=== PATIENT | male | born 1970 | race Caucasian/White ===

== ENCOUNTER 2024-11-10 09:55 | Emergency (ER) | payer OTHER, SELFPAY ==
--- OUTSIDE RECORDS SUMMARY | 2024-11-10 09:58 | XMS_ITS | Clinical Summary ---
Author Organization [facility] Address [address] [place] [address] Care Team Providers Care Psychodramatist Name Role Phone Jose Cordova MD Primary Care Provider [phone] Source Comments [facility],non-owned Affiliates and Associated Physician Practices is amultiple site organization consisting of ambulatory clinics and hospital sitesin [place], [place], [place] and [place]. This disclosure is being madepursuant to the Care Everywhere program and may not contain all information available regarding this patient. Last updated 18.[facility] Allergies No known active allergies Medications * Be aware that medications may not be up to date on this document. Alwaysverify current medications with the patient. Synthroid 125 MCG tablet Take 1 (one) tablet by mouth once daily 02/23/2022 Active escitalopram (Lexapro) 10 MG tablet Take 1 (one) tablet by mouth once daily 01/26/2022 Active lisinopril-hydro CHLOROthiazide (Prinzide; Zestoretic) 20-25 MG tablet Take 1 (one) tablet by mouth once daily 01/05/2023 Active Social History Tobacco Use Types Packs/Day Years Used Date Smoking Tobacco: Former Cigarettes 2 20 1 - 2011 Smokeless Tobacco: Former Chew Quit: 2016 Tobacco Cessation:Counseling Given: Not Answered Alcohol Use Standard Drinks/Week Comments Yes 0 (1 standard drink = 0.6 oz pur e alcohol) everyother day 3 beers or so Sex and Gender Information Value Date Recorded Sex Assigned at Not on file Legal Sex Male 1:11 PM CDT Gender Identity Not on file Sexual Orientation Not on file Last Filed Vital Signs Vital Sign Reading Time Taken Comments Blood Pressure 135/83 06/11/2022 12:30 PM INDUSTRIAL ECOLOGIST Pulse 82 06/11/2022 12:30 PM INDUSTRIAL ECOLOGIST Temperature 37 C (98.6 F) 06/11/2022 11:33 AM INDUSTRIAL ECOLOGIST Respiratory Rate 16 06/11/2022 12:40 PM INDUSTRIAL ECOLOGIST Oxygen Saturation 93% 06/11/2022 12:40 PM INDUSTRIAL ECOLOGIST Inhaled Oxygen Concentration - - Weight 98.9 kg (218 lb) 06/11/2022 7:31 AM INDUSTRIAL ECOLOGIST Height 172.7 cm (5' 8) 06/11/2022 7:31 AM INDUSTRIAL ECOLOGIST Body Mass Index 33.15 06/11/2022 7:31 AM INDUSTRIAL ECOLOGIST Plan of Treatment Health Maintenance Due Date Last Done Comments COLOGUARD (AGES 45-75) - COL ON CA SCREENING 1968 COLON MONITORING 1968 COLONOSCOPY - COLON CA SCREENING 1968 CT COLONOGRAPHY - COLON CA SCREENING 1968 Colorectal Cancer Screening 1968 FIT - COLON CA SCREENING 1968 FLEX SIG - COLON CA SCREENING 1968 LIPID TESTING 1968 HIV SCREENING 1983 HEPATITIS C SCREENING 03/14/1986 DTAP/TDAP/TD VACCINES (1 - Tdap) 1987 HEPATITIS B VACCINE (1 of 3 - 19+ 3-dose series) 1987 LUNG CANCER SCREENING 2018 PNEUMOCOCCAL VACCINE 50+ (1 of 1 - PCV) 2018 ZOSTER VACCINE (1 of 2) 2018 COVID-19 VACCINE (1 - 2023-2 5 season) 2024 DEPRESSION SCREENING 06/15/2024 INFLUENZA VACCINE (Season Ended) 2025 HIB VACCINE Aged Out No longer eligi ble based on patient's age to complete this topic HPV VACCINE Aged Out No longer eligi ble based on patient's age to complete this topic MENINGOCOCCAL (Group B) VACC INE SHARED DECISION-MAKING Aged Out No longer eligibl e based on patient's age to complete this topic MENINGOCOCCAL GROUPS A/C/Y/W VACCINE Aged Out No longer eligible b ased on patient's age to complete this topic Insurance [facility] Care Teams Psychodramatist Relationship Specialty Start Date End Date Jose Cordova MD [address] [place] [address] PCP - General Family Medicine 05/29/22
--- OUTSIDE RECORDS SUMMARY | 2024-11-10 10:00 | XMS_ITS | Clinical Summary ---
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 If there is a need to make changes, will recheck levels in 2-3 months. Instructions to patient on taking medication properly : in the morning, on an empty stomach , 1 h part from food and/or other meds. If any doses are missed, can take 2-3 tab together ,to make up for the missed dose; make sure at the end to the week, 7 tabs have been taken. Patient to follow up with his PCP Assessment & Plan (10/26/2018 10:01 AM CDT): Continue Synthroid, 125 mcg daily. Recheck levels in 3 months. Assessment & Plan (07/06/2018 10:03 AM WEDDING MAKEUP ARTIST): Continue Synthroid, 125 mcg daily Recheck TSH and free T4 in 2 months. Will adjust dose of Levothyroxine accordingly . If there is a need to make changes, will recheck levels in 2-3 months. Instructions to patient on taking medication properly : in the morning, on an empty stomach , 1 h part from food and/or other meds. If any doses are missed, can take 2-3 tab together ,to make up for the missed dose; make sure at the end to the week, 7 tabs have been taken. Resolved Problems Problem Noted Date Diagnosed Date Resolved Date Multinodular goiter 10/27/2017 07/06/19 19 Assessment & Plan (06/09/2018 11:56 AM WEDDING MAKEUP ARTIST): Patient has done exceptionally well postoperatively. He is having no postoperative issues. Patient is currently on levothyroxine 125 mcg daily. Patient is instructed to follow up with Dr. Roberts, medical wash tub machine operator to help him properly adjust his thyroid hormone replacement. Additional wound care instructions were discussed. Patient can follow back up as needed. Assessment & Plan (03/31/2018 1:01 PM CDT): Patient has a longstanding history of thyromegaly with multinodular goiter. Patient underwent a ultrasound-guided fine-needle aspiration biopsy of the dominant nodules within both right left lobes. The right lobe came back Flinton category ll and the left lobe came back consistent with Flinton category lll. The left lobe was sent for genomic testing however patient's insurance company denied payment so this was not performed. It was felt that the patient would benefit from repeat needle biopsy of the left dominant nodule. The 2nd biopsy came back Flinton class ll. There was finding on ultrasound imaging that the dominant nodule in the left has microcalcifications. Patient and remain concerned of a possible malignancy within the left lobe. Surveillance ultrasound imaging has demonstrated progressive increase in size of the thyroid nodules. Patient also experiences mild local compressive symptoms with his restricted pressure type feeling in the neck that is positional. A long and thorough discussion took place today with the patient pertaining to the medical and surgical management of thyroid disease. Based on the patient's history, review of diagnostic testing and my physical findings patient meets indications to undergo a total thyroidectomy with continuous recurrent laryngeal nerve monitoring. Patient was made aware that he will require thyroid hormone replacement for the rest of his life postsurgically. I discussed the surgery in detail with elaborated on the recurrent laryngeal nerve and parathyroid glands, their anatomical location relationship to the operative site and the potential functional disability that could occur should the structures be injured. All questions were answered to what appeared to be patient's understanding and satisfaction. After the procedure was explained in full the potential risk, complications, benefits and alternatives patient would like to further discuss of this his and call us when he is ready to make a decision. Assessment & Plan (10/27/2017 10:57 AM CDT): This is most likely a benign multinodular goiter, especially with a long standing history. I have recommended a FNA biopsy of the right dominant nodule and also the one in the left , which seems to have some microcalcifications Differential diagnosis would include benign nodule (macrofollicular or adenomatoid/hyperplastic nodules, colloid adenomas, nodular goiter, and Shannon's thyroiditis) vs thyroid carcinoma ( follicular , papillary ) FNA indicated and performed If benign, will follow up in a year Otherwise, Might need surgical referral. Subclinical hyperthyroidism 10/27/2017 07/06/2018 Assessment & Plan (10/27/2017 10:54 AM CDT): With over 10+ year history documented with serial thyroid function test his TSH seems to be a stable. I explained to the patient and his how this condition, usually requires no treatment, specialist so in a young person. I try to reassure the patient that his symptoms are very unlikely related to this. Would recommend to continue monitoring thyroid function tests on a yearly basis. Surgical History Surgery Date Site/Laterality Comments HERNIA REPAIR 06/15/2007 - 06/14/2008 Left IHR COLONOSCOPY W/ POLYPECTOMY 06/15/2009 - 06/14/2010 VASECTOMY THYROIDECTOMY 05/15/2018 - 06/14/2018 Medical History Medical History Date Comments Sleep apnea Heart murmur Thyroid nodule Migraines Family History Medical History Relation Name Comments Hypertension Father Atrial fibrillation Mother Diabetes Mother Hypertension Mother Relation Name Status Comments Father Alive Mother Alive Social History Tobacco Use Types Packs/Day Years Used Date Smoking Tobacco: Former Cigarettes Q uit: 2017 Smokeless Tobacco: Former Quit: 03/26/2018 Alcohol Use Standard Drinks/Week Comments Yes 7 (1 standard drink = 0.6 oz pur e alcohol) PHQ-2 Answer Date Recorded PHQ-2 Score 0 02/04/2019 Sex and Gender Information Value Date Recorded Sex Assigned at Not on file Legal Sex Male 8:27 PM WEDDING MAKEUP ARTIST Gender Identity Not on file Sexual Orientation Not on file Obstetrics History Last Filed Vital Signs Vital Sign Reading Time Taken Comments Blood Pressure 144/90 05/17/2019 10:05 AM WEDDING MAKEUP ARTIST Pulse 67 05/17/2019 10:05 AM WEDDING MAKEUP ARTIST Temperature 36.4 C (97.5 F) 05/28/2018 7:28 AM WEDDING MAKEUP ARTIST Respiratory Rate 16 05/17/2019 10:05 AM WEDDING MAKEUP ARTIST Oxygen Saturation 95% 05/28/2018 7:37 AM WEDDING MAKEUP ARTIST Inhaled Oxygen Concentration - - Weight 81.7 kg (180 lb 3.2 oz) 05/17/2019 10:05 AM WEDDING MAKEUP ARTIST Height 170.2 cm (5' 7) 05/17/2019 10:05 AM WEDDING MAKEUP ARTIST Body Mass Index 28.22 05/17/2019 10:05 AM WEDDING MAKEUP ARTIST Plan of Treatment Health Maintenance Due Date Last Done Comments Colon Cancer Screening-Colonoscopy 1968 Hepatitis C Screening 1968 Prostate Cancer Screening-PSA 1968 Regular Well Visit/Exam 18-64 1986 Depression Screening 10/27/2019 10/26/2018, 10/28/19 18 Covid-19 Vaccine ( season) 2024 09/30/2020, 09/09/2020 Influenza Vaccine (Season Ended) 2025 03/09/2021, 03/24/2020, 03/23/2019, Additional history exists DTaP/Tdap/Td Vaccine (2 - Td or Tdap) 12/01/2026 12/01/2016 Hepatitis B Screening Completed 12/29/2016, 017 Zoster Vaccine Completed 05/28/2019, 02/28/2019 Pneumococcal vaccine <65 Aged Out No longer eligible based on patient's age to complete this topic Insurance [facility] CHOICE PLUS [facility] H[facility]PPO Address: [place] [address] Advance Directives For more information, please contact: [phone] * Full Code (Latest Code Status on File) Date Activated Date Inactivated Comments 05/27/2018 12:22 PM 05/28/2018 1:59 PM Care Teams Cartography Professor Relationship Specialty Start Date End Date Jose Cordova MD PCP - General Family Medicine 10/16/17 Brooke Yao NP [address] [address] Registered Nurse 05/27/18
--- OUTSIDE RECORDS SUMMARY | 2024-11-10 10:00 | XMS_ITS | Encounter Summary ---
Author Organization [facility] Address [address] [place] [address] Phone Care Team Providers Care Crane Mechanic Name Role Phone Jose Cordova MD Primary Care Provider Brooke Yao LUMP MAKER Unavailable [phone] Encounter Details Date Type Department Care Team (Late st Contact Info) Description 10/27/2017 Orders Only [facility] ProviderLisbet MD [address] [place] [id number] Social History Tobacco Use Types Packs/Day Years Used Date Smoking Tobacco: Former Smokeless Tobacco: Never Alcohol Use Standard Drinks/Week Comments Yes 0 (1 standard drink = 0.6 oz pur e alcohol) Sex and Gender Information Value Date Recorded Sex Assigned at Not on file Legal Sex Male 8:27 PM FINANCIAL SERVICES DIRECTOR Gender Identity Not on file Sexual Orientation Not on file documented as of this encounter Plan of Treatment Not on file documented as of this encounter Procedures Procedure Name Priority Date/Time Associated Diagnosis Comments CYTOLOGY 10/27/2017 12:00 AM CDT documented in this encounter Results * CYTOLOGY (10/27/2017 12:00 AM CDT) Narrative 10/27/2017 12:00 AM CDT Ordered by an unspecified provider. us Historical Provider LAB CYTOLOGY ORDERABLES F inal Result documented in this encounter Visit Diagnoses Not on filedocumented in this encounter Care Teams Crane Mechanic Relationship Specialty Start Date End Date Jose Cordova MD PCP - General Family Medicine 10/16/17 Brooke Yao NP [address] [address] Registered Nurse 05/27/18 documented as of this encounter
--- OUTSIDE RECORDS SUMMARY | 2024-11-10 10:00 | XMS_ITS | Referral Summary ---
Author Organization [address] Address [address] [place] [address] Care Team Providers Care Knot Borer Name Role Phone Jose Cordova MD Primary Care Provider [phone] Brooke Yao SKI PRODUCTION SUPERVISOR Unavailable [phone] Allergies No known active allergies Medications hydroCHLOROthiaz gigi (HYDRODIURIL) 25 mg tablet Take 25 mg by mouth daily 06/30/2018 Active Synthroid 125 mcg tablet Take 1 tablet (125 mcg total) by mouth daily 90 tablet 11/15/2019 Active Active Problems Problem Noted Date Diagnosed Date Postoperative hypothyroidism 07/06/2018 Assessment & Plan (05/17/2019 10:43 AM DIETETICS DIRECTOR): Will check TSH and free T4 Will [...] months. Assessment & Plan (07/06/2018 10:03 AM DIETETICS DIRECTOR): Continue Synthroid, 125 mcg daily Recheck TSH [...] 19 Assessment & Plan (06/09/2018 11:56 AM DIETETICS DIRECTOR): Patient has done exceptionally well postoperatively. He is having no postoperative issues. Patient is currently on levothyroxine 125 mcg daily. Patient is instructed to follow up with Dr. Roberts, medical medical doctor to help him properly adjust his thyroid hormone replacement. Additional wound care instructions were discussed. Patient can follow back up as needed. Assessment & Plan (03/31/2018 1:01 PM CDT): Patient has a longstanding history of thyromegaly with multinodular goiter. Patient underwent a ultrasound-guided fine-needle aspiration biopsy of the dominant nodules within both right left lobes. The right lobe came back Candor category ll and the left lobe came back consistent with Candor category lll. The left lobe was sent for genomic testing however patient's insurance company denied payment so this was not performed. It was felt that the patient would benefit from repeat needle biopsy of the left dominant nodule. The 2nd biopsy came back Candor class ll. There was finding on ultrasound [...] thyroid function tests on a yearly basis. Social History Tobacco Use Types Packs/Day Years Used Date Smoking Tobacco: Former Cigarettes Q uit: 2017 Smokeless Tobacco: Former Quit: 03/26/2018 Alcohol Use Standard Drinks/Week Comments Yes 7 (1 standard drink = 0.6 oz pur e alcohol) PHQ-2 Answer Date Recorded PHQ-2 Score 0 02/04/2019 Sex and Gender Information Value Date Recorded Sex Assigned at Not on file Legal Sex Male 8:27 PM DIETETICS DIRECTOR Gender Identity Not on file Sexual Orientation Not on file Last Filed Vital Signs Vital Sign Reading Time Taken Comments Blood Pressure 144/90 05/17/2019 10:05 AM DIETETICS DIRECTOR Pulse 67 05/17/2019 10:05 AM DIETETICS DIRECTOR Temperature 36.4 C (97.5 F) 05/28/2018 7:28 AM DIETETICS DIRECTOR Respiratory Rate 16 05/17/2019 10:05 AM DIETETICS DIRECTOR Oxygen Saturation 95% 05/28/2018 7:37 AM DIETETICS DIRECTOR Inhaled Oxygen Concentration - - Weight 81.7 kg (180 lb 3.2 oz) 05/17/2019 10:05 AM DIETETICS DIRECTOR Height 170.2 cm (5' 7) 05/17/2019 10:05 AM DIETETICS DIRECTOR Body Mass Index 28.22 05/17/2019 10:05 AM DIETETICS DIRECTOR Plan of Treatment Not on file Insurance [facility] CHOICE PLUS Advance Directives For more information, please contact: [phone] * Full Code (Latest Code Status on File) Date Activated Date Inactivated Comments 05/27/2018 12:22 PM 05/28/2018 1:59 PM Care Teams Knot Borer Relationship Specialty Start Date End Date Jose Cordova MD PCP - General Family Medicine 10/16/17 Brooke Yao NP [address] [address] Registered Nurse 05/27/18
[2024-11-10 10:01] VITALS: BP 121/73; PULSE 99; RESP 16; TEMP 36.3; O2SAT 99
--- NOTE | 2024-11-10 10:30 | ED_ITS ---
HPI - Ear Problem General Chief complaint: Ear Stated complaint: ear clogging Time Seen by Provider: 11/10/24 10:15 Source: patient and RN notes reviewed Mode of arrival: ambulatory Limitations: no limitations History of Present Illness HPI Narrative: 54-year-old male presents Express Care complaining of right ear pain for 2 days. Patient feels like he has something in his right ear. Patient has tried tried using a Q-tip an using his pinky finger to remove the feels like is a foreign body in his ear. Patient denies any discharge, fevers, upper respiratory symptoms, cough, dizziness, blurry vision, or any other complaints. Patient states he is leaving for the [facility] in 2 days wants to get it checked out before leaving the country Related Data Allergies Allergy/AdvReac Type Severity Reaction Status Date / Time No Known Allergies Allergy Verified 11/10/24 10:09 Review of Systems Review of Systems: CONSTITUTIONAL: Denies fever, chills, or sweats. EYES: Denies visual changes, redness, or discharge. ENT: Denies rhinorrhea, congestion, sore throat. Positive for otalgia CARDIOVASCULAR: Denies chest pain, palpitations, or edema. RESPIRATORY: Denies cough or dyspnea. GASTROINTESTINAL: Denies abdominal pain, nausea, vomiting, or diarrhea. GENITOURINARY: Denies dysuria or hematuria. SKIN: Denies rash or itching. MUSCULOSKELETAL: Denies back pain, joint pain, or myalgia. NEUROLOGIC: Denies headache, numbness, or weakness. PSYCHIATRIC: Denies anxiety or depression. All other systems reviewed are negative, except as documented in HPI. [facility] Past Medical History Medical History Decreased libido Stress disorder, acute Thyroid disease Sleep apnea Hypertension Headache Surgical History Surgical History H/O rhinoplasty H/O thyroidectomy History of hernia repair Family History Family History Father Hypertension Grandparent Carcinoma of colon Mother Family history of type 2 diabetes mellitus Cancer Thyroid disorder Sibling Asthma Mother Diabetes mellitus Heart disease Thyroid disorder Social History Social History Smoking status: Former smoker Tobacco type: cigarettes Second hand tobacco smoke exposure: Yes Smoking end date: 06/15/17 Alcohol intake: current Substance use: never Substance use type: does not use Lack of Transportation: No Lack of Food: Never True Current Housing: I Have Housing Concerned About Future Housing: No Difficulty Paying Gas/Electric Bills: No Difficulty Paying for Meds: No Currently Unemployed: No Education: High School Diploma/GED Difficulty w/ Childcare or Family Care: No Living arrangements: with family Occupation/Education: occupation Additional occupation/education comments: [employer] Gender identity (if verbalized by the patient): Male Spiritual care concerns: No Comments At the time of my signature, I reviewed and agree with the nursing past medical, surgical, social, and family history. There is no relevant family history pertinent to the patient complaint. Exam Narrative: GENERAL: This is a well-nourished, well-developed adult, in no apparent distress. They are non ill-appearing, nontoxic appearing. HEAD: normocephalic, atraumatic. EYES: Sclera clear/white. Conjunctiva normal. Vision is grossly intact. Extraocular movements intact EARS: External ears normal, left auditory canals clear and without redness, swelling, or drainage. Right auditory canal without erythema or swelling, or discharge. There is abrasion with bloody discharge in the right auditory canal. No foreign body visualized in auditory canals bilaterally. TMs normal without perforation. Hearing grossly intact. NOSE: External nose normal with no obvious nasal discharge, nasal turbinates without redness, no rhinorrhea. THROAT: Mucous membranes moist, posterior pharynx clear, without erythema or swelling. Uvula midline. NECK: Neck supple, non-tender without lymphadenopathy, masses or thyromegaly. CARDIOVASCULAR: Regular rate and rhythm RESPIRATORY: Respiratory rate normal, respiratory effort nonlabored, no respiratory distress SKIN: warm, Dry, intact with no suspicious lesions or rash, good texture and turgor. NEURO: awake, alert, and oriented to person, place and time. There were no obvious focal neurologic abnormalities. EXTREMITIES: No joint tenderness, effusion, or edema noted. Course Course Emergency Course: Portions of this record may have been created with voice recognition software Level of Care: Express Care Visit Vital Signs Vital signs: Vital Signs Temperature 97.3 F L 11/10/24 10:01 Pulse Rate 99 11/10/24 10:01 Respiratory Rate 16 11/10/24 10:01 Blood Pressure 121/73 11/10/24 10:01 Pulse Oximetry 99 11/10/24 10:01 Oxygen Delivery Room Air 11/10/24 10:01 Temperature 97.3 F L 11/10/24 10:01 Pulse Rate 99 11/10/24 10:01 Respiratory Rate 16 11/10/24 10:01 Blood Pressure 121/73 11/10/24 10:01 Pulse Oximetry 99 11/10/24 10:01 Oxygen Delivery Room Air 11/10/24 10:01 Reviewed Medical Decision Making MDM Narrative Medical decision making narrative: No evidence of infection the patient's right ear or auditory canal. No retained foreign body and patient's ear. There is evidence of an abrasion in his right auditory canal this likely could from his Q-tip use or from scratching with his pinky. Since the patient is leaving the country the treat him with ofloxacin ear drops prevent further infection. Advised patient to keep his head above water and avoid water in his ears while he is on his trip. Discussed physical exam findings. Advised supportive measures and signs/symptoms to go to the ER. Pt is appropriate for outpt treatment and f/u. Differential Diagnosis Differential Diagnosis: Otitis media, otitis externa, ear abrasion, foreign body in ear Vital Signs Vital Signs: Vital Signs Temperature 97.3 F L 11/10/24 10:01 Pulse Rate 99 11/10/24 10:01 Respiratory Rate 16 11/10/24 10:01 Blood Pressure 121/73 11/10/24 10:01 Pulse Oximetry 99 11/10/24 10:01 Oxygen Delivery Room Air 11/10/24 10:01 Temperature 97.3 F L 11/10/24 10:01 Pulse Rate 99 11/10/24 10:01 Respiratory Rate 16 11/10/24 10:01 Blood Pressure 121/73 11/10/24 10:01 Pulse Oximetry 99 11/10/24 10:01 Oxygen Delivery Room Air 11/10/24 10:01 Critical Care Time Critical Care Time Critical Care Time: No Discharge Plan Discharge Clinical Impression: Abrasion of ear canal Qualifiers: Encounter type: initial encounter Laterality: right Qualified Code(s): S00.411A - Abrasion of right ear, initial encounter Patient Disposition: Home Condition: Stable Instructions: Antibiotic Form, Ear Abrasion (ED) Additional Instructions: There is no evidence of infection your right ear. Appears to be an abrasion in your right auditory canal. Use antibiotic drops as directed to prevent infection. Avoid submerging your head under water are getting water in your right ear until it has healed. Do not use peroxide or put Q-tips in your ears. Follow-up PCP in 1 week. If you developed worsen worsening swelling, redness, pain, fevers, discharge, dizziness, or any other concerns please go ER immediately. Patient Language: [place] Prescriptions: New ofloxacin 0.3 % drops 10 drp RIGHT EAR DAILY 7 Days Qty: 10 0RF No Action testosterone cypionate 200 mg/mL oil 200 mg IM .bi weekly Qty: 10 0RF (DME) syringe with needle, safety 3 mL 18 gauge x 1 syringe See Rx Instructions .Route Qty: 10 0RF Rx Instructions: As directed to administer testosterone (DME) needle (disp) 23 gauge 23 gauge x 1 1/2 needle See Rx Instructions .Route Qty: 10 0RF Rx Instructions: As directed to inject testosterone levothyroxine [Synthroid] 125 mcg tablet See Rx Instructions .ROUTE .COMPLEX Qty: 90 1RF Dose Instruction: Take 1 tablet by mouth once daily Rx Instructions: Take 1 tablet by mouth once daily escitalopram oxalate 10 mg tablet 10 mg PO DAILY Qty: 90 1RF lisinopril-hydrochlorothiazide 20-25 mg tablet See Rx Instructions .ROUTE .COMPLEX Qty: 30 5RF Dose Instruction: Take 1 tablet by mouth once daily Rx Instructions: Take 1 tablet by mouth once daily Follow-up/Referrals: Jose Cordova MD [Primary Care Provider] - Time of Disposition: 10:24
== END 2024-11-10 10:30 | disposition home or self-care (01) ==
PROVIDERS: PCP Family Medicine
DX: S00.411A Abrasion of right ear, initial encounter (principal); X58.XXXA Exposure to other specified factors, initial encounter; I10 Essential (primary) hypertension; E89.0 Postprocedural hypothyroidism; Z87.891 Personal history of nicotine dependence
CPT/HCPCS: 99213; G0463